=== PATIENT | male | born 1970 | race African-American/Black ===

== ENCOUNTER 2021-04-16 14:05 | Emergency (ER) | payer MEDICAID ==
[~2021-04-16] VITALS: Ht 182.9 cm; Wt 99.8 kg
[~2021-04-16 14:05] MED LIST: ALBU8.5H8 IH
--- NOTE | 2021-04-16 14:10 | NUR ---
PATIENT STATES HE FEELS "BLOATED IN MY ABDOMEN". DENIES FEVER, NAUSEA, VOMITING OR PAIN.
[2021-04-16] MEDS ORDERED: DEXT15LI PO (14:17)
[2021-04-16] MEDS ORDERED: FAMOTIDINE. 20 MG/2 ML VIAL IV ONE (14:52)
[2021-04-16 15:07] LABS: MEAN CORPUSCULAR HEMOGLOBIN 30.7 uug (23.8-33.4); MEAN CORPUSCULAR VOLUME 90.2 fL (73.0-96.2); PLATELET COUNT (AUTO) 187 K/uL (152-348)
[2021-04-16] MEDS: FAMOTIDINE. 20 MG/2 ML VIAL IV ONE (15:17)
[2021-04-16] MEDS: IV NORMAL SALINE 1000 ML BAG IV ONE (15:17)
[2021-04-16 15:19] LABS: BILIRUBIN,TOTAL 0.4 mg/dL (0.2-1.0); CREATININE 1.1 mg/dL (0.6-1.3); TOTAL PROTEIN, SERUM 8.4 g/dL (6.4-8.2)
--- NOTE | 2021-04-16 16:29 | NUR ---
PATIENT STATES HE FEELS BETTER. DC AND FOLLOW UP INSTRUCTIONS GIVEN AND EXPLAINED TO PATIENT WHO STATES HE UNDERSTANDS ALL INSTRUCTIONS
--- NOTE | 2021-04-16 16:30 | NUR ---
IV removed. Catheter intact and site benign. Pressure and 4x4 gauze applied to site. No bleeding noted.
== END 2021-04-16 16:33 | disposition home or self-care (01) ==
LOC: ER 14:05
DX: R05.9 Cough, unspecified (principal); Z20.822 Contact with and (suspected) exposure to COVID-19; K80.20 Calculus of gallbladder without cholecystitis without obstruction; R14.0 Abdominal distension (gaseous); I51.7 Cardiomegaly; R03.0 Elevated blood-pressure reading, without diagnosis of hypertension; I49.1 Atrial premature depolarization; Z88.0 Allergy status to penicillin; J45.909 Unspecified asthma, uncomplicated; K21.9 Gastro-esophageal reflux disease without esophagitis
CPT/HCPCS: 36415; 70030-TC; 71045; 85025; 93005; A4663; J3490; J7030

== ENCOUNTER 2021-12-29 15:46 | Emergency (ER) | payer MEDICAID, OTHER ==
[~2021-12-29] VITALS: Ht 182.9 cm; Wt 122.5 kg
[~2021-12-29 15:46] MED LIST changes: +DEXT15LI PO
[2021-12-29 16:29] LABS: *BILIRUBIN,URIN 2+ (NEGATIVE); *CLARITY,URINE CLEAR (CLEAR); *COLOR,URINE YELLOW (YELLOW); *KETONES,URINE 1+ (NEGATIVE); LEUKOCYTE ESTERASE ,URINE NEGATIVE (NEGATIVE); NITRITE, URINE NEGATIVE (NEGATIVE); PH,URINE 5.5 (5.0-8.0); UGLUCOSE NEGATIVE (NEGATIVE)
[2021-12-29 16:30] LABS: *BLOOD, URINE TRACE (NEGATIVE)
[2021-12-29] MEDS ORDERED: MORPHINE SULFATE 4 MG/1 ML DISP.SYRIN ONE (16:45)
[2021-12-29] MEDS ORDERED: IV NORMAL SALINE 1000 ML BAG IV ONE (16:45)
[2021-12-29] MEDS ORDERED: ONDANSETRON 4 MG/2 ML VIAL IV ONE (16:45)
[2021-12-29] MEDS ORDERED: MORPHINE SULFATE 2 MG/1 ML DISP.SYRIN IV ONE (16:45)
[2021-12-29] MEDS ORDERED: ONDANSETRON 4 MG/2 ML VIAL ONE (16:45)
[2021-12-29 17:03] LABS: HEMATOCRIT 35.9 % (36.7-47.1); MEAN CORPUSCULAR VOLUME 86.2 fL (73.0-96.2); PLATELET COUNT (AUTO) 161 K/uL (152-348)
[2021-12-29 17:08] LABS: CREATININE 1.5 mg/dL (0.6-1.3); POTASSIUM 3.3 mmol/L (3.5-5.1)
[2021-12-29 17:14] LABS: BILIRUBIN,DIRECT 0.3 mg/dL (0.0-0.2); BILIRUBIN,TOTAL 0.9 mg/dL (0.2-1.0); TOTAL PROTEIN, SERUM 8.7 g/dL (6.4-8.2)
--- NOTE | 2021-12-29 17:24 | NUR ---
Patient is resting comfortably on gurney while using his personal electronic device, NAD.
--- NOTE | 2021-12-29 18:10 | NUR ---
"NPO except medications for now" per Dr Rojo. Patient is aware.
[2021-12-29] MEDS ORDERED: IV NS 1000 ML 1,000 ML IV ONE ×2 (18:15→18:45)
[2021-12-29] MEDS ORDERED: POTASSIUM BICARBONATE/CIT AC 25 MEQ TABLET.EFF PO ONE (18:15)
[2021-12-29] MEDS ORDERED: POTASSIUM BICARBONATE/CIT AC 25 MEQ TABLET.EFF ONE (18:17)
--- NOTE | 2021-12-29 18:21 | NUR ---
Patient had 3 diarrhea episodes, MD notified.
[2021-12-29] MEDS ORDERED: IOHEXOL 300MG/ML 50 ML VIAL ONE (18:40)
[2021-12-29] MEDS ORDERED: SWABABLE VALVE TRANSFER SET EA MC ONE (18:40)
[2021-12-29] MEDS ORDERED: IV NORMAL SALINE 250 ML IV ONE (18:40)
--- NOTE | 2021-12-29 19:29 | NUR ---
Pending callback from nursing shellfish farming supervisor Laila re: case maker to arrange S ambulance for a round-trip to [facility] CT department, more stool specimen for OVA & parasites (per lab staff Bambi's directive), still for 3rd IV normal saline (1000ml infusion) 2/2 patient's current creatinine level =1.5. Registry nurse for this patient has not arrived yet. Nursing shellfish farming supervisor notified. Nursing SBAR given to switchboard receptionist Adrian.
--- NOTE | 2021-12-29 20:30 | NUR ---
Called [facility] ambulance to transport patient to [facility] ETA is 90mins.
--- NOTE | 2021-12-29 21:18 | NUR ---
assumed care, pt found in bed, alert and oriented. pt c/o right sided andominal pain non-provked, radiating to the back x 3 days. pt sts the pain presented with fever that subsided after 2 days, and was followed by intermittent diarrhea. pt sts he has been having bowel movements Q20 mins consistently for days. pt stopped drinking water in hopes of regulating frequnecy, to no avail. pt has rec'd @L NS and has an additional bag infusing. pt is anxious, repeatedly getting out of bed, asking repetative questions. pt is on pvc monitor, pulse ox and pvc monitor. awaiting transport to have CT performed. Pt medicated per MD order, RN will CTM
[2021-12-29] MEDS ORDERED: LORAZEPAM 2 MG/1 ML VIAL ONE (21:26)
[2021-12-29] MEDS ORDERED: HYDROMORPHONE 1 MG/1 ML DISP.SYRIN ONE (21:26)
[2021-12-29] MEDS ORDERED: LORAZEPAM 2 MG/1 ML VIAL IV ONE (21:30)
[2021-12-29] MEDS ORDERED: HYDROMORPHONE 1 MG/1 ML DISP.SYRIN IV ONE (21:30)
--- NOTE | 2021-12-29 21:45 | NUR ---
pt reports moderate pain relief after medication administration, currently stating 4/10 down from initial compliant of 01/10. pt is on telephone speaking loudly and laughing. pt calls out for RN q10 - q15, to ask same repetative questions. when will transport arrive? can i have some water? how much longer do i have to be here? RN answered questions to best of his ability
[2021-12-29 21:46] LABS: BACTERIA,URINE FEW /HPF (NONE SEEN); MUCUS,URINE MANY /LPF (0-FEW); SQUAMOUS EPITHELIAL CELL,UR FEW /HPF (NONE SEEN)
--- NOTE | 2021-12-29 22:04 | NUR ---
[facility]; [id number] BLS@ bedside to transport pt, facesheet provided.
[2021-12-30] MEDS ORDERED: METR500T PO (00:22)
[2021-12-30] MEDS ORDERED: POTA10TA21 PO (00:22)
[2021-12-30] MEDS ORDERED: OXYC-128 PO (00:22)
[2021-12-30] MEDS ORDERED: LEVO500T90 PO (00:22)
[2021-12-30] MEDS ORDERED: METRONIDAZOLE 500 MG/NS 100 ML PIGGYBACK IV ONE (00:45)
[2021-12-30] MEDS ORDERED: levoFLOXacin 500 MG/D5W 100ML PIGGYBACK IV ONE (00:45)
[2021-12-30] MEDS ORDERED: levoFLOXacin 750MG/D5W 150 ML IV ONE (00:48)
[2021-12-30] MEDS ORDERED: METRONIDAZOLE 500 MG/NS 100ML 100 ML IV ONE (00:49)
--- NOTE | 2021-12-30 01:42 | NUR ---
pt medicated per MD order, two ABX infused intervenously. pt tolerated well with no adverse reactions or effects following. IV was d/c'd intact and site bandaged with 4x4 and coban. pt cleared for d/c by , ACI provided in written and verbal form, understanding verbalised. pt ambulated out of the dept under his own power, with NAD noted.
[2021-12-30 01:45] VITALS: BP 111/66
== END 2021-12-30 01:47 | disposition home or self-care (01) ==
LOC: ER 15:46
DX: R10.30 Lower abdominal pain, unspecified (principal); R19.7 Diarrhea, unspecified; N17.9 Acute kidney failure, unspecified; E86.0 Dehydration; E87.6 Hypokalemia; K21.9 Gastro-esophageal reflux disease without esophagitis; J45.909 Unspecified asthma, uncomplicated; Z88.0 Allergy status to penicillin
CPT/HCPCS: 99284; 74176; 96375; 96361; 80076; 80048; 86625; 81001; 83690; 85025; 87493; 87046; 36415; 83605; 87015; 87899; 87427; 87177; 96365; 96368; Q9967; J2060; J2405; J1170; J2270; J7040 ×2; J1956; J3490; A4663

== ENCOUNTER 2022-01-05 02:48 | Emergency (ER) | payer OTHER ==
[~2022-01-05] VITALS: Ht 182.9 cm; Wt 122.5 kg
[~2022-01-05 02:48] MED LIST changes: +LEVO500T90 PO; +METR500T PO; +OXYC-128 PO; +POTA10TA21 PO
[2022-01-05 04:26] LABS: HEMATOCRIT 33.8 % (36.7-47.1); MEAN CORPUSCULAR HEMOGLOBIN 27.7 uug (23.8-33.4); MEAN CORPUSCULAR VOLUME 86.4 fL (73.0-96.2); PLATELET COUNT (AUTO) 268 K/uL (152-348)
[2022-01-05 04:30] LABS: CREATININE 1.1 mg/dL (0.6-1.3)
[2022-01-05 04:56] VITALS: BP 147/85
--- NOTE | 2022-01-05 05:04 | NUR ---
cleared for D/C by , ACI provided, understanding verbalised. pt ambulated out of depart with steady gait under his own power. vitals stable, NAD noted
[2022-01-05 05:12] LABS: IRON, SERUM 70 ug/dL (50-175)
[2022-01-05 05:26] LABS: FERRITIN 251 ng/mL (26-388)
[2022-01-05 07:58] LABS: BAND % (MANUAL) 1 % (0-10); EOSINOPHILS % (MANUAL) 2 % (0-8); LYMPHOCYTES % (MANUAL) 39 % (20-40); MONOCYTES % (MANUAL) 9 % (2-10); NEUTROPHILS % (MANUAL) 49 % (42-75)
== END 2022-01-05 05:12 | disposition home or self-care (01) ==
LOC: ER 02:48
DX: R11.0 Nausea (principal); Z87.19 Personal history of other diseases of the digestive system; E66.9 Obesity, unspecified; Z68.36 Body mass index [BMI] 36.0-36.9, adult; D64.9 Anemia, unspecified; J45.909 Unspecified asthma, uncomplicated; R03.0 Elevated blood-pressure reading, without diagnosis of hypertension; R73.03 Prediabetes; K21.9 Gastro-esophageal reflux disease without esophagitis; Z88.0 Allergy status to penicillin
CPT/HCPCS: 36415; 70030-TC; 83550; 83735; 85025; A4663

== ENCOUNTER 2022-07-03 20:48 | Emergency (ER) | payer OTHER ==
[~2022-07-03] VITALS: Ht 182.9 cm; Wt 108.9 kg
[~2022-07-03 20:48] MED LIST changes: +HYDR-3972 PO; +HYDR7GEL RC; +PSYL1POW MC
[2022-07-03] MEDS ORDERED: IV NS 1000 ML 1,000 ML IV ONE (21:15)
[2022-07-03 21:28] LABS: HEMATOCRIT 33.9 % (36.7-47.1); MEAN CORPUSCULAR HEMOGLOBIN 27.6 uug (23.8-33.4); MEAN CORPUSCULAR VOLUME 87.5 fL (73.0-96.2); PLATELET COUNT (AUTO) 179 K/uL (152-348)
[2022-07-03 21:38] LABS: CREATININE 1.1 mg/dL (0.6-1.3); POTASSIUM 3.3 mmol/L (3.5-5.1)
[2022-07-03 21:43] LABS: BILIRUBIN,DIRECT 0.2 mg/dL (0.0-0.2); BILIRUBIN,TOTAL 0.5 mg/dL (0.2-1.0); TOTAL PROTEIN, SERUM 8.7 g/dL (6.4-8.2)
[2022-07-03] MEDS ORDERED: POTASSIUM CHLORIDE 20 MEQ TAB.PRT.SR PO ONE (22:30)
[2022-07-03] MEDS ORDERED: POTASSIUM CHLORIDE 20 MEQ TAB.PRT.SR ONE (22:32)
[2022-07-03] MEDS ORDERED: MAGNESIUM SULFATE/D5W 200 ML ONE (22:32)
[2022-07-03] MEDS: MAGNESIUM SULFATE/D5W 100 ML IV SCH ×2 (22:34→23:17)
[2022-07-03 23:20] LABS: *BILIRUBIN,URIN NEGATIVE (NEGATIVE); *BLOOD, URINE NEGATIVE (NEGATIVE); *CLARITY,URINE CLEAR (CLEAR); *COLOR,URINE YELLOW (YELLOW); *KETONES,URINE NEGATIVE (NEGATIVE); *UROBILINOGEN,URINE 0.2 E.U./dl (NORMAL); LEUKOCYTE ESTERASE ,URINE NEGATIVE (NEGATIVE); NITRITE, URINE NEGATIVE (NEGATIVE); PH,URINE 5.5 (5.0-8.0); UGLUCOSE NEGATIVE (NEGATIVE)
[2022-07-04 00:35] LABS: BACTERIA,URINE FEW /HPF (NONE SEEN); RBC,URINE 0-3 /HPF (0-3); SQUAMOUS EPITHELIAL CELL,UR FEW /HPF (NONE SEEN); WBC,URINE NONE SEEN /HPF (0-3)
--- NOTE | 2022-07-04 01:34 | NUR ---
Patient discharged to home in stable condition. Written and verbal after care instructions given. Patient verbalizes understanding of instructions. Stressed follow up or return to ER for worsening s/s. Patient is a/ox4, NAD noted.
[2022-07-04 01:37] VITALS: BP 135/78
== END 2022-07-04 01:37 | disposition home or self-care (01) ==
LOC: ER 20:49
DX: R19.7 Diarrhea, unspecified (principal); E87.6 Hypokalemia; J45.909 Unspecified asthma, uncomplicated; Z88.0 Allergy status to penicillin
CPT/HCPCS: 99284; 96365; 96366; 80076; 80048; 81001; 83690; 85025; 87493; 36415; J3475; J7040; A4663

== ENCOUNTER 2022-09-11 23:10 | Emergency (ER) | payer OTHER ==
[~2022-09-11] VITALS: Ht 185.4 cm; Wt 113.4 kg
[2022-09-12] MEDS ORDERED: PENICILLIN G BENZATHINE 2.4 MMU/4 ML DISP.SYRIN IM ONE ×2 (01:00→01:42)
[2022-09-12 01:14] LABS: HEMATOCRIT 38.6 % (36.7-47.1); MEAN CORPUSCULAR HEMOGLOBIN 27.2 uug (23.8-33.4); MEAN CORPUSCULAR VOLUME 83.1 fL (73.0-96.2); PLATELET COUNT (AUTO) 220 K/uL (152-348)
[2022-09-12 01:22] LABS: BILIRUBIN,DIRECT 0.1 mg/dL (0.0-0.2); BILIRUBIN,TOTAL 0.3 mg/dL (0.2-1.0); CREATININE 1.5 mg/dL (0.6-1.3); POTASSIUM 3.9 mmol/L (3.5-5.1); TOTAL PROTEIN, SERUM 8.7 g/dL (6.4-8.2)
[2022-09-12 01:28] LABS: *AMPHETAMINE, URINE NEGATIVE (NEGATIVE); *CANNABINOID, URINE NEGATIVE (NEGATIVE); *COCCAINE, URINE NEGATIVE (NEGATIVE); *PHENCYCLIDINE SCREEN,URINE NEGATIVE (NEGATIVE)
[2022-09-12 01:33] LABS: *CLARITY,URINE CLEAR (CLEAR); *COLOR,URINE DARK YELLOW (YELLOW)
[2022-09-12 01:34] LABS: *BILIRUBIN,URIN NEGATIVE (NEGATIVE); *BLOOD, URINE 1+ (NEGATIVE); *KETONES,URINE NEGATIVE (NEGATIVE); *UROBILINOGEN,URINE 0.2 E.U./dl (NORMAL); BACTERIA,URINE FEW /HPF (NONE SEEN); LEUKOCYTE ESTERASE ,URINE NEGATIVE (NEGATIVE); NITRITE, URINE NEGATIVE (NEGATIVE); SQUAMOUS EPITHELIAL CELL,UR FEW /HPF (NONE SEEN); UGLUCOSE NEGATIVE (NEGATIVE)
[2022-09-12] MEDS ORDERED: CHOL400T32 PO (02:26)
[2022-09-12 03:56] VITALS: BP 120/72
--- NOTE | 2022-09-12 03:56 | NUR ---
Patient discharged to home in stable condition. Written and verbal after care instructions given. Patient verbalizes understanding of instructions. Stressed follow up or return to ER for worsening s/s. Patient walked out with steady gait.
[2022-09-12 04:56] LABS: NEUTROPHILS % (MANUAL) 0 % (42-75)
== END 2022-09-12 03:57 | disposition home or self-care (01) ==
LOC: ER 23:10
DX: R51.9 Headache, unspecified (principal); A53.9 Syphilis, unspecified; J45.909 Unspecified asthma, uncomplicated; K21.9 Gastro-esophageal reflux disease without esophagitis; Z79.2 Long term (current) use of antibiotics; Z79.899 Other long term (current) drug therapy
CPT/HCPCS: 99285; 70450; 80076; 80048; 85025; 36415; 96372; 80307; 81001; 85007; J0561; 70030-TC; A4663

== ENCOUNTER 2022-09-19 00:30 | Emergency (ER) | payer OTHER ==
[~2022-09-19 00:30] MED LIST changes: +CHOL400T32 PO
--- NOTE | 2022-09-19 00:47 | NUR ---
Patient told admit grading clerk that her will come back tomorrow instead.
== END 2022-09-19 00:50 | disposition left against medical advice (07) ==
LOC: ER 00:30
DX: Z53.21 Procedure and treatment not carried out due to patient leaving prior to being seen by health care provider (principal)

== ENCOUNTER 2022-09-19 12:08 | Emergency (ER) | payer OTHER ==
[~2022-09-19] VITALS: Ht 182.9 cm; Wt 113.4 kg
[2022-09-19] MEDS ORDERED: PENICILLIN G BENZATHINE 2.4 MMU/4 ML DISP.SYRIN IM ONE ×2 (12:56→13:00)
--- NOTE | 2022-09-19 13:03 | NUR ---
PT WAS EVALUATED BY DR HARRIS. PT WAS D/C'd TO HOME. D/C INSTRUCTIONS GIVEN TO THE PT BY DR HARRIS.
[2022-09-19 13:06] VITALS: BP 146/84
== END 2022-09-19 13:07 | disposition home or self-care (01) ==
LOC: ER 12:08
DX: A53.9 Syphilis, unspecified (principal); J45.909 Unspecified asthma, uncomplicated; K21.9 Gastro-esophageal reflux disease without esophagitis; Z79.2 Long term (current) use of antibiotics; Z79.899 Other long term (current) drug therapy
CPT/HCPCS: 99283; 96372; J0561; A4663

== ENCOUNTER 2023-01-18 15:32 | Emergency (ER) | payer OTHER ==
[~2023-01-18] VITALS: Ht 182.9 cm; Wt 113.4 kg
[2023-01-18] MEDS ORDERED: GENT5DRO4 RIGHTEYE (16:54)
[2023-01-18] MEDS ORDERED: NAPR-1164 PO (17:09)
[2023-01-18 17:21] VITALS: BP 142/70; O2SAT 100
== END 2023-01-18 17:21 | disposition home or self-care (01) ==
LOC: ER 15:32
DX: H10.9 Unspecified conjunctivitis (principal); M19.071 Primary osteoarthritis, right ankle and foot; J45.909 Unspecified asthma, uncomplicated; K21.9 Gastro-esophageal reflux disease without esophagitis; Z79.899 Other long term (current) drug therapy; Z79.2 Long term (current) use of antibiotics
CPT/HCPCS: 73610; A4663

== ENCOUNTER 2023-03-11 20:48 | Emergency (ER) | payer OTHER ==
[~2023-03-11] VITALS: Ht 182.9 cm; Wt 122.5 kg
[~2023-03-11 20:48] MED LIST changes: +GENT5DRO4 RIGHTEYE; +NAPR-1164 PO
[2023-03-11 21:26] LABS: *BILIRUBIN,URIN NEGATIVE (NEGATIVE); *BLOOD, URINE 1+ (NEGATIVE); *CLARITY,URINE CLEAR (CLEAR); *COLOR,URINE LIGHT YELLOW (YELLOW); *KETONES,URINE NEGATIVE (NEGATIVE); *PROTEIN,URINE NEGATIVE (NEGATIVE); *UROBILINOGEN,URINE 0.2 E.U./dl (NORMAL); LEUKOCYTE ESTERASE ,URINE NEGATIVE (NEGATIVE); NITRITE, URINE NEGATIVE (NEGATIVE); PH,URINE 5.5 (5.0-8.0); UGLUCOSE NEGATIVE (NEGATIVE)
[2023-03-11 22:29] LABS: BACTERIA,URINE FEW /HPF (NONE SEEN); SQUAMOUS EPITHELIAL CELL,UR FEW /HPF (NONE SEEN); WBC,URINE 0-3 /HPF (0-3)
[2023-03-12] MEDS ORDERED: SIMETHICONE 80 MG TAB.CHEW PO ONE (01:00)
[2023-03-12] MEDS ORDERED: FAMOTIDINE 20 MG TABLET PO ONE (01:00)
[2023-03-12 01:05] LABS: BASOPHILS % (AUTO) 0.7 % (0.0-2.0); EOSINOPHILS # (AUTO) 0.1 K/uL (0.0-0.7); EOSINOPHILS % (AUTO) 1.4 % (0.0-7.0); HEMATOCRIT 36.5 % (36.7-47.1); HEMOGLOBIN 12.2 g/dL (12.5-16.3); LYMPHOCYTES # (AUTO) 2.6 K/uL (0.8-4.8); LYMPHOCYTES % (AUTO) 39.8 % (20.5-51.5); MEAN CORPUSCULAR HGB CONC 33 g/dL (32.5-36.3); MEAN CORPUSCULAR VOLUME 89.9 fL (73.0-96.2); MONOCYTES # (AUTO) 0.5 K/uL (0.1-1.30); MONOCYTES % (AUTO) 7.2 % (0.0-11.0); NEUTROPHILS # (AUTO) 3.3 K/uL (1.8-8.9); NEUTROPHILS % (AUTO) 50.9 % (38.5-71.5); PLATELET COUNT (AUTO) 232 K/uL (152-348); RED BLOOD CELL COUNT(AUTO) 4.07 MIL/uL (4.06-5.63); RED CELL DISTRIBUTION WIDTH 17.2 % (12.1-16.2); WHITE BLOOD COUNT (AUTO) 6.4 K/uL (3.6-10.2)
[2023-03-12 01:18] LABS: DIFFERENTIAL COMMENT 1
[2023-03-12 01:32] LABS: ALBUMIN 3.9 g/dL (3.4-5.0); BILIRUBIN,TOTAL 0.4 mg/dL (0.2-1.0); CALCIUM 8.8 mg/dL (8.5-10.1); CREATININE 1.3 mg/dL (0.6-1.3); POTASSIUM 3.8 mmol/L (3.5-5.1); TOTAL PROTEIN, SERUM 8.6 g/dL (6.4-8.2)
[2023-03-12 03:34] VITALS: BP 147/83; TEMP 98.2; O2SAT 98
== END 2023-03-12 02:50 | disposition home or self-care (01) ==
LOC: ER 20:50
DX: R31.29 Other microscopic hematuria (principal); R14.0 Abdominal distension (gaseous); J45.909 Unspecified asthma, uncomplicated; K21.9 Gastro-esophageal reflux disease without esophagitis; Z79.2 Long term (current) use of antibiotics; Z79.899 Other long term (current) drug therapy
CPT/HCPCS: 36415; 85025; 85610; A4606; A4663

== ENCOUNTER 2024-05-17 20:34 | Emergency (ER) | payer OTHER ==
[~2024-05-17] VITALS: Ht 182.9 cm; Wt 99.8 kg
[2024-05-17 20:36] VITALS: O2SAT 93
== END 2024-05-17 22:27 | disposition left against medical advice (07) ==
LOC: ER 20:34
DX: R06.02 Shortness of breath (principal); Z53.21 Procedure and treatment not carried out due to patient leaving prior to being seen by health care provider
CPT/HCPCS: A4606; A4663